=== PATIENT | female | born 2005 | race Asian ===

== ENCOUNTER 2024-11-17 14:20 | Emergency (ER) | payer SELFPAY ==
[2024-11-17 14:24] VITALS: BP 118/65; PULSE 71; RESP 16; TEMP 36.4; O2SAT 99; BMI 23.4
[2024-11-17] MEDS: PROPARACAINE 0.5% OPHTH SOL 1 DROPS EYE-RIGHT (17:34)
--- NOTE | 2024-11-17 17:34 | ED.EYEPROB ---
HPI - Eye Problem General Chief complaint: Eye Problems Stated complaint: Oil in right Eye Time Seen by Provider: 11/17/24 17:24 History of Present Illness HPI Narrative: 19-year-old female who is a contact lens wearer presents to the ED status post a right eye injury sustained at work just prior to arrival. Patient works in a kitchen, accidentally got some aerosol sunflower oil into her eye when she was trying to open a new can. The oil was not hot. Patient states that she was instructed to wash out her eye and states that her I felt fine. Patient's notes that after awhile, her eyes started feeling irritated and was continually watering. Patient denies any change in vision. Patient is a contact lens wearer, however states she has not used it in months. Patient is not wearing glasses for correction. No pain in the eye. Related Data Previous Rx's Medication Instructions Recorded levofloxacin 1.5 % eye drops See Rx Instructions .Route 11/17/24 .COMPLEX 7 days #5 mL Allergies Allergy/AdvReac Type Severity Reaction Status Date / Time No Known Drug Allergies Allergy Verified 11/17/24 17:34 Review of Systems Constitutional Constitutional: Denies chills, Denies fatigue, Denies fever(s), Denies frequent falls, Denies lethargy and Denies weakness Eyes Eyes: Denies change in vision, Denies eye discharge, Reports irritation and Denies loss of vision Comments: right eye feels irritated, watering ENT Ears, Nose, Mouth, and Throat: Denies change in voice, Denies dizziness, Denies neck pain, Denies sore throat and Denies throat swelling Cardiovascular Cardiovascular: Denies chest pain, Denies irregular heart rhythm, Denies lightheadedness, Denies palpitations, Denies dyspnea, Denies dyspnea on exertion and Denies orthopnea Respiratory Respiratory: Denies cough, Denies dyspnea, Denies dyspnea on exertion and Denies wheezing Gastrointestinal Gastrointestinal: Denies abdominal pain, Denies change in bowel habits, Denies diarrhea, Denies nausea and Denies vomiting Musculoskeletal Musculoskeletal: Denies neck pain and Denies numbness Integumentary/Breasts Skin/Breast: Denies pruritus, Denies erythema, Denies rash and Denies wounds Neurologic Neurologic: Denies behavioral changes, Denies confusion, Denies dizziness, Denies frequent falls, Denies loss of vision, Denies numbness and Denies weakness Psychiatric Psychiatric: Denies anxiety, Denies behavioral changes, Denies confusion, Denies depression, Denies homicidal ideation and Denies suicidal ideation Endocrine Endocrine: Denies fatigue, Denies flushing and Denies palpitations Hematologic/Lymphatic Hematologic/Lymphatic: Denies easy bruising Allergic/Immunologic Allergic/Immunologic: Denies urticaria, Denies throat swelling and Denies wheezing Exam Narrative Exam Narrative: Const General:?cooperative, healthy appearing and comfortable [facility] Head:?normal to inspection Ears:?hearing grossly normal bilaterally Nose:?external nose normal Face and sinus:?normal facial exam and sinuses nontender Mouth:?oral mucosae normal Throat:?posterior oropharynx normal Eyes General:? left eye appears normal; right eye with conjunctival injection, watering. 20/40 OD, 20/40 OS, 20/40 OU without correction. Fluorescein exam shows mild conjunctival abrasions. No corneal abrasions. PH is normal at 7. No pain with extraocular movements. Neck Neck:?normal visual inspection and no lymphadenopathy noted Resp Effort & Inspection:?normal respiratory effort Auscultation:?clear to auscultation bilaterally Cardio Rate:?regular rate Rhythm:?regular rhythm Neuro General:?patient alert, patient awake and patient oriented x3 Initial Vital Signs Initial Vital Signs: Vital Signs Temperature 97.5 F L 11/17/24 14:24 Pulse Rate 71 11/17/24 14:24 Respiratory Rate 16 11/17/24 14:24 Blood Pressure 118/65 11/17/24 14:24 Pulse Oximetry 99 11/17/24 14:24 Oxygen Delivery Method Room Air 11/17/24 14:24 Course Orders Ordered: Discontinued Medications Fluorescein Sodium (Fluorescein 1 Mg Strip) 1 mg EYE-RIGHT NOW ONE Stop: 11/17/24 17:31 Last Admin: 11/17/24 17:36 Dose: 1 mg Documented By: JNAELLE Proparacaine HCl (Proparacaine 0.5% Ophth Little) 1 drops EYE-RIGHT PRN PRN PRN Reason: Pain, Mild (1-3) Last Admin: 11/17/24 17:34 Dose: 1 drop Documented By: JANELLE Vital Signs Vital signs: Vital Signs - 8 hr 11/17/24 14:24 11/17/24 18:13 Temperature 97.5 F L Pulse Rate 71 77 Respiratory Rate 16 16 Blood Pressure 118/65 110/68 Pulse Oximetry 99 99 Oxygen Delivery Method Room Air Room Air MDM - Eye Problem MDM Narrative Medical decision making narrative: 19-year-old female who is a contact lens wearer presents to the ED status post a right eye injury sustained at work just prior to arrival. Fluorescein exam shows some mild conjunctival abrasion, no corneal abrasion. PH is normal at 7. Eye exam is 20/40 OS, 20/40 OD, 20/40 OU. Patient denies any changes in vision. patient experienced relief with proparacaine in the eye. Prescribed antibiotic eye drops. Patient given proparacaine with instructions on how to use, to stop usage after 24 hours. Recommend follow-up with ophthalmology. ED return precautions discussed with patient. Patient verbalized understanding. Medical records reviewed: Yes Discharge Plan Departure Patient Disposition: Home Clinical Impression: Abrasion of conjunctiva Qualifiers: Encounter type: initial encounter Laterality: right Qualified Code(s): S05.01XA - Injury of conjunctiva and corneal abrasion without foreign body, right eye, initial encounter Instructions: DI for Chemical Eye Burn Activity Restrictions/Additional Instructions: You were evaluated in the ED today for an eye injury. You are being prescribed antibiotic ointment to apply in the eye for 7 days. You may also apply 1 drop ofthe proparacaine every 1 hour for the 1st 24 hours. Please do not use it after 24 hours. Please follow-up with an manager discovery as soon as possible. Return to the ED if you have worsening symptoms, changes in vision. Prescriptions: New levofloxacin 1.5 % drops See Rx Instructions .ROUTE .COMPLEX 7 Days Qty: 5 0RF Rx Instructions: 2 drp into right eye every 2 hours for the 1st 2 days; 2 drops into right eye every 6 hours for 5 days Stand Alone Forms: Patient Portal/API/Survey
[2024-11-17] MEDS: FLUORESCEIN 1 MG STRIP EYE-RIGHT (17:36)
[2024-11-17 18:13] VITALS: BP 110/68; PULSE 77; RESP 16; O2SAT 99
== END 2024-11-17 18:13 | disposition home or self-care (01) ==
PROVIDERS: Emergency Provider Student in an Organized Health Care Education/Training Program
DX: S05.01XA Injury of conjunctiva and corneal abrasion without foreign body, right eye, initial encounter (principal); X58.XXXA Exposure to other specified factors, initial encounter; Y93.G3 Activity, cooking and baking; Y92.511 Restaurant or cafe as the place of occurrence of the external cause; Y99.0 Civilian activity done for income or pay
CPT/HCPCS: 99282